=== PATIENT | female | born 2000 | race Two or more races ===

== ENCOUNTER 2019-02-28 16:54 | Emergency (ER) | payer OTHER ==
--- NOTE | 2019-02-28 17:07 | EDPHY ---
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 There was blood in the mouth. She has a small abrasion to the radial aspect of her finger. She did irrigated thoroughly. Her player is contacting patient's custodial to get information about him. She is here for protocol blood draws. She does not wish to start any prophylactic medications. She also had concerns because she is 11 weeks . Severity: Moderate Modifying factors: None REVIEW OF SYSTEMS: Constitutional: denies: chills, fever, recent illness, recent injury EENTM: denies: blurred vision, double vision, nose congestion Respiratory: denies: cough, shortness of breath Cardiac: denies: chest pain, irregular heart rate, lightheadedness, palpitations Gastrointestinal/Abdominal: denies: abdominal pain, diarrhea, nausea, vomiting, blood streaked stools Genitourinary: denies: dysuria, frequency, hematuria, pain Musculoskeletal: denies: joint pain, muscle pain Skin: See HPI denies: lesions, rash, jaundice, bruising Neurological: denies: headache, numbness, paresthesia, tingling, dizziness, weakness Hematologic/Lymphatic: denies: blood clots, easy bleeding, easy bruising Immunologic/allergic: denies: HIV/AIDS, transplant 10 systems reviewed and negative except as noted EXAM: GENERAL: Well-appearing, well-nourished and in no acute distress. HEAD: Atraumatic, normocephalic. EYES: Pupils equal round and reactive to light, extraocular movements intact, sclera anicteric, conjunctiva are normal. ENT: TMs normal, nares patent, oropharynx clear without exudates. Moist mucous membranes. NECK: Normal range of motion, supple without lymphadenopathy or JVD. LUNGS: Breath sounds clear to auscultation bilaterally and equal. No wheezes rales or rhonchi. HEART: Regular rate and rhythm without murmurs, rubs or gallops. ABDOMEN: Soft, nontender, normoactive bowel sounds. No guarding, no rebound. No masses appreciated. BACK: No CVA tenderness, no spinal tenderness, step-offs or deformities EXTREMITIES: Normal range of motion, no pitting or edema. No clubbing or cyanosis. NEUROLOGICAL: Cranial nerves II through XII grossly intact. Normal speech, normal gait. 5/5 strength, normal movement in all extremities, normal sensation , normal reflexes PSYCH: Normal mood, normal affect. SKIN: Small abrasion radial aspect of the left ring finger, very superficial Source: Patient Exam Limitations: No limitations - Personal History LMP (Females 10-55): Current Tetanus/Diphtheria Vaccine: Yes - Medical/Surgical History Hx Asthma: No Hx Chronic Respiratory Disease: No Hx Diabetes: No Hx Cardiac Disease: No Hx Renal Disease: No Hx Cirrhosis: No Hx Alcoholism: No Hx HIV/AIDS: No Hx Splenectomy or Spleen Trauma: No - Family History Significant Family History: No pertinent family hx - Social History Alcohol Use: None Constitutional: Initial Vital Signs Temperature (C) 37.2 C 02/28/19 17:05 Heart Rate 67 02/28/19 17:05 Respiratory Rate 16 02/28/19 17:05 Blood Pressure 116/67 02/28/19 17:05 O2 Sat (%) 97 02/28/19 17:05 O2 Delivery Mode Room Air Allergies/Adverse Reactions: No Known Allergies Allergy (Verified 02/28/19 17:04) Home Medications: Medication Instructions Recorded 02/28/19 Medical Decision Making ED Course/Re-evaluation: Patient has a very small abrasion does not require treatment. She irrigated it at work. Her baseline lab work was drawn in her employer is currently working on getting medical records from the donor as well as possibly blood dressed. Will not treat prophylactically this time. Discussed the very miniscule risk involved. She agrees with this plan. Differential Diagnosis: Partial list of the Differential diagnosis considered include but were not limited to; abrasion, exposure and although unlikely based on the history and physical exam, I also considered infection, foreign body. I discussed these differential diagnoses and the plan with the patient as well as the usual and expected course. The patient understands that the diagnosis is provisional and that in medicine we are not always correct and that further workup is often warranted. Usual and customary warnings were given. All of the patient's questions were answered. The patient was instructed to return to the emergency department should the symptoms at all worsen or return, otherwise to followup with the physician as we discussed. Departure - Departure Disposition: Home, Routine, Self-Care Clinical Impression: Exposure to blood Condition: Fair Instructions: Body Substance Exposure (ED) Referrals: GAUTAM PAGAN [Other] - As per Instructions
[2019-02-28 17:11] VITALS: BP 116/67
[2019-02-28 20:55] LABS: HEPATITIS C ANTIBODY TOTAL NEGATIVE (NEGATIVE); HIV TYPE 1 AND 2 NEGATIVE (NEGATIVE)
== END 2019-02-28 17:46 | disposition home or self-care (01) ==
LOC: CED 16:54
DX: Z77.21 Contact with and (suspected) exposure to potentially hazardous body fluids (principal); Y92.531 Health care provider office as the place of occurrence of the external cause; Y99.0 Civilian activity done for income or pay; Z33.1 Pregnant state, incidental
CPT/HCPCS: 99283-ER; G0472